=== PATIENT | female | born 1965 | race Caucasian/White ===

== ENCOUNTER 2016-08-06 18:25 | Emergency (ER) | payer BC ==
[~2016-08-06] VITALS: Ht 154.9 cm; Wt 114.6 kg
[~2016-08-06 18:25] MED LIST: NAPR250T43 PO; [UNRECOGNIZED DRUG - CODE] PO; atrovastin
[2016-08-06 18:45] VITALS: TEMP 37.2; Ht 154.9 cm; Wt 114.6 kg
[2016-08-06 19:59] VITALS: O2SAT 97
[2016-08-06 20:15] LABS: BASO % 0.4 %; BASO ABS # 0.04 K/uL (0-0.2); COMPLETE YES; EOS % 1.1 %; HEMATOCRIT 37.4 % (37-47); IG% 0.3 %; LYMPH % 34.7 %; LYMPH ABS # 3.36 K/uL (1.2-3.4); MEAN CELL VOLUME 90.8 fL (80-100); MEAN CORPUSCULAR HGB CONC 35.3 g/dl (32-36); MEAN PLATELET VOLUME 9.4 fL (7.4-10.4); MONO % 6.5 %; PLATELET COUNT 363 K/uL (130-400); RED BLOOD COUNT 4.12 M/uL (4.2-5.4); WHITE BLOOD COUNT 9.67 K/uL (4.8-10.8)
--- NOTE | 2016-08-06 20:28 | DIAGNOSTIC IMAGING REPORT ---
CHEST ONE VIEW PORTABLE HISTORY: Atypical CHEST PAIN COMPARISON: Chest 08/17/2009. FINDINGS: The cardiac silhouette remains borderline enlarged. No focal lung consolidations to suggest pneumonia. No evidence for pulmonary edema. No pleural effusions. No pneumothorax. IMPRESSION: No significant change compared to the prior study. No acute process. Electronically signed by: Cole Galloway M.D. 08/06/2016 8:26 PM Dictated Date/Time: 08/06/2016 8:25 PM
[2016-08-06 20:44] LABS: ALT/SGPT 58 U/L (12-78); AST/SGOT 41 U/L (15-37); BLOOD UREA NITROGEN 10 mg/dl (7-18); CALCIUM 8.2 mg/dl (8.5-10.1); CARBON DIOXIDE 30 mmol/L (21-32); CHLORIDE 103 mmol/L (98-107); CREATININE 0.83 mg/dl (0.60-1.20); GLUCOSE 88 mg/dl (70-99); POTASSIUM 3.3 mmol/L (3.5-5.1); SODIUM 140 mmol/L (136-145)
[2016-08-06 20:49] LABS: ALKALINE PHOSPHATASE 65 U/L (45-117)
[2016-08-06] MEDS ORDERED: ATOR10TA88 PO (20:56)
[2016-08-06] MEDS ORDERED: OPTIRAY 320 IV PRN (21:15)
--- NOTE | 2016-08-06 21:30 | DIAGNOSTIC IMAGING REPORT ---
CHEST CTA for PULMONARY ARTERIES CT DOSE: 711.75 mGy.cm HISTORY: Atypical chest pain. TECHNIQUE: Multiaxial CT images of the chest were performed following the intravenous administration of contrast to evaluate the pulmonary arteries. Maximal intensity projection images were also obtained. COMPARISON STUDY: Chest 08/06/2016. FINDINGS: There is a normal caliber thoracic aorta with no evidence for dissection. There is no evidence for pulmonary embolus. No pleural effusions. No pneumothorax. No mediastinal or hilar lymphadenopathy. The central airways are patent. A 3 mm nodule within the right lower lobe on image 80 of 281. Small linear densities at the right middle lobe and lingula favor subsegmental atelectasis. No focal lung consolidations to suggest pneumonia. Hepatic steatosis. A 12 mm hypodense lesion within the left hepatic lobe. This favors a cyst. The spleen and visualized adrenal glands are unremarkable. Colonic diverticulosis. Small hiatus hernia. No mediastinal or hilar lymphadenopathy. IMPRESSION: 1. No evidence for pulmonary embolus. 2. A 3 mm nodule within the right lower lobe. Please refer to the chart below for recommended follow-up. Please refer to below summary of Fleischner criteria recommendations for follow-up of incidental CT nodules (Radha Blankenship, Guidelines for management of small pulmonary nodules detected on CT scans: A statement from the Fleischner Society, Radiology 237: [id number].) Low Risk Patient: Minimal or no smoking or other known risk factors for malignancy <=4 mm: No follow-up needed. >4-6 mm: Initial follow-up CT at 12 months; if unchanged, no further follow-up. >6-8 mm: Initial follow-up CT at 6-12 months then at 18-24 months if no change. >8 mm: Follow-up CT at \R\3, 9, 24 months, or PET and/or biopsy. High Risk Patient: History of smoking or other known risk factors <=4 mm: Follow-up at 12 months; if unchanged, no further follow-up. >4-6 mm: Initial follow-up CT at 6-12 months then at 18-24 months if no change. >6-8 mm: Initial follow-up CT at 3-6 months then at 9-12 and 24 months if no change. >8 mm: Same as low risk patient. Note: Nodule size measured as average of length and width. Ground glass or partly solid nodules may require longer follow-up to exclude indolent adenocarcinoma. Electronically signed by: Cole Galloway M.D. 08/06/2016 9:29 PM Dictated Date/Time: 08/06/2016 9:20 PM
[2016-08-06 21:40] VITALS: BP 154/95; PULSE 83; O2SAT 98
--- NOTE | 2016-08-07 00:04 | EMERGENCY ROOM VISIT NOTE ---
History Report prepared by Nichole: Courtney Murillo Under the Supervision of: Dr. Gene Hobbs M.D. First contact with patient: 19:42 Chief Complaint: CHEST PAIN Stated Complaint: CHEST DISCOMFORT, CHEST PRESSURE Nursing Triage Summary: midsternal cp on and off for a couple of days, c/o nausea, seen at [facility], sent to the er History of Present Illness The patient is a 50 year old female who presents to the Emergency Room with complaints of intermittent central chest pain that began approximately one week ago. She currently rates her discomfort as a 4/10 in severity. The patient states that her pain has been constant since 1000 this morning, but states it was intermittent the past week. The chest pain is nonexertional. It does not happen postprandial. The patient additionally notes nausea intermittently for the past week. She states that she went to Urgent Care today because her pain has worsened. The patient denies any previous heart issues. She describes her pain as a weight resting on her chest. The patient states that the pain woke her from sleep last evening. She states that she has taken Ibuprofen for her discomfort without relief. The patient notes a family history of heart disease , stating that her father had a triple bypass. She denies any tobacco use. The patient notes a history of hypertension and hyperlipidemia. She states that her last stress test was 5-6 years ago. The patient states that she traveled by plane to [place] two weeks ago. She denies any increased pain with breathing. The patient notes relief of her pain with coughing. Pt denies LOC, headache, fevers, chills, diaphoresis, visual changes, neck pain, tearing pain radiating to the back, personal history or family history of aneurysm or pulmonary embolism, uncontrolled hypertension, breathing difficulties, leg swelling, coagulation abnormalities, recent surgery or immobilization, vomiting , abdominal pain, melena, hematochezia, urinary symptoms, numbness, weakness, lymphadenopathy, rash, or other complaints. Source of History: patient Onset: one week ago Position: chest (central) Symptom Intensity: 4/10 Quality: other (weight) Timing: intermittent Modifying Factors (Relieving): other (coughing) Associated Symptoms: + nausea Review of Systems See HPI for pertinent positives and negatives. A total of ten systems were reviewed and were otherwise negative. Past Medical & Surgical Medical Problems: (1) Hypercholesteremia (2) Hypertension Surgical Problems: (1) S/P section Family History Diabetes mellitus Heart disease Hypertension Social History Smoking Status: Never Smoker Smokeless Tobacco Use: No Alcohol Use: none Marital Status: Housing Status: lives with significant other Occupation Status: employed Current/Historical Medications Scheduled Atorvastatin (Lipitor), Unknown Dose PO DAILY Benazepril & Hydrochlorothiazi (Benazepril Hcl/Hydrochlor), 1 TAB PO DAILY Scheduled PRN Naproxen (Naprosyn), 250 MG PO BID PRN for Pain Allergies Coded Allergies: No Known Allergies (Unverified , 08/06/16) Physical Exam Vital Signs Date Time Temp Pulse Resp B/P Pulse Ox O2 Delivery O2 Flow Rate FiO2 08/06/16 21:40 83 22 154/95 98 Room Air 08/06/16 19:59 97 Room Air 08/06/16 19:59 96 Room Air 08/06/16 18:47 99 Room Air 08/06/16 18:45 37.2 86 18 151/88 99 Room Air Physical Exam GENERAL: Awake, alert, well-appearing, in no distress HENT: Normocephalic, atraumatic. Oropharynx unremarkable. EYES: Normal conjunctiva. Sclera non-icteric. NECK: Supple. No nuchal rigidity. FROM. No JVD. RESPIRATORY: Clear to auscultation. CARDIAC: Regular rate, normal rhythm. Extremities warm and well perfused. Pulses equal. ABDOMEN: Soft, non-distended. No tenderness to palpation. No rebound or guarding. No masses. RECTAL: Deferred. MUSCULOSKELETAL: Chest examination reveals no tenderness. The back is symmetrical on inspection without obvious abnormality. There is no CVA tenderness to palpation. No joint edema. LOWER EXTREMITIES: Calves are equal size bilaterally and non-tender. No edema. No discoloration. NEURO: Normal sensorium. No sensory or motor deficits noted. SKIN: No rash or jaundice noted. Medical Decision & Procedures ER Provider Diagnostic Interpretation: X ray results as stated below per my interpretation and radiologist interpretation. Other radiology results as stated below per my review and radiologist interpretation CHEST ONE VIEW PORTABLE HISTORY: Atypical CHEST PAIN COMPARISON: Chest 08/17/2009. FINDINGS: The cardiac silhouette remains borderline enlarged. No focal lung consolidations to suggest pneumonia. No evidence for pulmonary edema. No pleural effusions. No pneumothorax. IMPRESSION: No significant change compared to the prior study. No acute process. Electronically signed by: Cole Galloway M.D. 08/06/2016 8:26 PM Dictated Date/Time: 08/06/2016 8:25 PM CHEST CTA for PULMONARY ARTERIES CT DOSE: 711.75 mGy.cm HISTORY: Atypical chest pain. TECHNIQUE: Multiaxial CT images of the chest were performed following the intravenous administration of contrast to evaluate the pulmonary arteries. Maximal intensity projection images were also obtained. COMPARISON STUDY: Chest 08/06/2016. FINDINGS: There is a normal caliber thoracic aorta with no evidence for dissection. There is no evidence for pulmonary embolus. No pleural effusions. No pneumothorax. No mediastinal or hilar lymphadenopathy. The central airways are patent. A 3 mm nodule within the right lower lobe on image 80 of 281. Small linear densities at the right middle lobe and lingula favor subsegmental atelectasis. No focal lung consolidations to suggest pneumonia. Hepatic steatosis. A 12 mm hypodense lesion within the left hepatic lobe. This favors a cyst. The spleen and visualized adrenal glands are unremarkable. Colonic diverticulosis. Small hiatus hernia. No mediastinal or hilar lymphadenopathy. IMPRESSION: 1. No evidence for pulmonary embolus. 2. A 3 mm nodule within the right lower lobe. Please refer to the chart below for recommended follow-up. Please refer to below summary of Fleischner criteria recommendations for follow-up of incidental CT nodules (Radha Blankenship, Guidelines for management of small pulmonary nodules detected on CT scans: A statement from the Fleischner Society, Radiology 237: [phone].) Low Risk Patient: Minimal or no smoking or other known risk factors for malignancy <=4 mm: No follow-up needed. >4-6 mm: Initial follow-up CT at 12 months; if unchanged, no further follow-up. >6-8 mm: Initial follow-up CT at 6-12 months then at 18-24 months if no change. >8 mm: Follow-up CT at \R\3, 9, 24 months, or PET and/or biopsy. High Risk Patient: History of smoking or other known risk factors <=4 mm: Follow-up at 12 months; if unchanged, no further follow-up. >4-6 mm: Initial follow-up CT at 6-12 months then at 18-24 months if no change. >6-8 mm: Initial follow-up CT at 3-6 months then at 9-12 and 24 months if no change. >8 mm: Same as low risk patient. Note: Nodule size measured as average of length and width. Ground glass or partly solid nodules may require longer follow-up to exclude indolent adenocarcinoma. Electronically signed by: Cole Galloway M.D. 08/06/2016 9:29 PM Dictated Date/Time: 08/06/2016 9:20 PM Laboratory Results 08/06/16 20:08 Red Blood Count 4.12, Mean Corpuscular Volume 90.8, Mean Corpuscular Hemoglobin 32.0, Mean Corpuscular Hemoglobin Concent 35.3, Mean Platelet Volume 9.4, Neutrophils (%) (Auto) 57.0, Lymphocytes (%) (Auto) 34.7, Monocytes (%) (Auto) 6.5, Eosinophils (%) (Auto) 1.1, Basophils (%) (Auto) 0.4, Neutrophils # (Auto) 5.50, Lymphocytes # (Auto) 3.36, Monocytes # (Auto) 0.63, Eosinophils # (Auto) 0.11, Basophils # (Auto) 0.04 08/06/16 20:08 Test 08/06/16 20:08 08/06/16 20:12 White Blood Count 9.67 K/uL (4.8-10.8) Red Blood Count 4.12 M/uL (4.2-5.4) Hemoglobin 13.2 g/dL (12.0-16.0) Hematocrit 37.4 % (37-47) Mean Corpuscular Volume 90.8 fL (80-100) Mean Corpuscular Hemoglobin 32.0 pg (25-34) Mean Corpuscular Hemoglobin Concent 35.3 g/dl (32-36) Platelet Count 363 K/uL (130-400) Mean Platelet Volume 9.4 fL (7.4-10.4) Neutrophils (%) (Auto) 57.0 % Lymphocytes (%) (Auto) 34.7 % Monocytes (%) (Auto) 6.5 % Eosinophils (%) (Auto) 1.1 % Basophils (%) (Auto) 0.4 % Neutrophils # (Auto) 5.50 K/uL (1.4-6.5) Lymphocytes # (Auto) 3.36 K/uL (1.2-3.4) Monocytes # (Auto) 0.63 K/uL (0.11-0.59) Eosinophils # (Auto) 0.11 K/uL (0-0.5) Basophils # (Auto) 0.04 K/uL (0-0.2) RDW Standard Deviation 44.2 fL (36.4-46.3) RDW Coefficient of Variation 13.4 % (11.5-14.5) Immature Granulocyte % (Auto) 0.3 % Immature Granulocyte # (Auto) 0.03 K/uL (0.00-0.02) Anion Gap 7.0 mmol/L (3-11) Est Creatinine Clear Calc Drug Dose 95.4 ml/min Estimated GFR () 95.3 Estimated GFR (Non- 82.2 BUN/Creatinine Ratio 12.0 (10-20) Calcium Level 8.2 mg/dl (8.5-10.1) Total Bilirubin 0.4 mg/dl (0.2-1) Direct Bilirubin 0.1 mg/dl (0-0.2) Aspartate Amino Transf (AST/SGOT) 41 U/L (15-37) Alanine Aminotransferase (ALT/SGPT) 58 U/L (12-78) Alkaline Phosphatase 65 U/L (45-117) Total Creatine Kinase 106 U/L (26-192) Creatine Kinase MB < 0.5 ng/ml (0.5-3.6) Creatine Kinase MB Ratio (0-3.0) Troponin I < 0.015 ng/ml (0-0.045) Total Protein 7.7 gm/dl (6.4-8.2) Albumin 3.8 gm/dl (3.4-5.0) Lipase 109 U/L (73-393) Bedside D-Dimer > 450 ng/mlFEU (0-450) Laboratory results reviewed by me ECG Indication: chest pain Rate (beats per minute): 87 Rhythm: normal sinus Findings: no acute ischemic change, no ectopy ED Course 1945: The patient was evaluated in room B11B. A complete history and physical exam was performed. 2200: I reevaluated the patient and she is resting comfortably. I discussed the exam findings with her and I discussed the treatment plan. She is going to consult her PCP tomorrow for an outpatient stress test this week. She is ready to go home. Medical Decision Triage Nursing notes reviewed and agree them. The patient's history was concerning for chest pain. Differential diagnosis: Etiologies such as cardiac ischemia, aortic dissection, pulmonary embolism, pneumonia, pneumothorax, musculoskeletal, infections, pericarditis, myocarditis , esophageal rupture, gastrointestinal, as well as others were entertained. Physical examination: As above. ER treatment provided: No medication given as the patient's symptoms were mild and she declined analgesia On reassessment the patient felt better. Diagnostic interpretation by me: The electrocardiogram was negative for pathologic change. The labs revealed an unremarkable CBC and chemical panel. AST was minimal over normal. The patient had normal LFTs and lipase. Negative troponin. A single set of cardiac markers were performed because the patient's pain was present for greater than 8 hours. A d-dimer was performed and was positive. The patient was sent for CT imaging. Imaging studies: Chest x-ray and CT as above the patient was informed of the nodule as well as the fatty liver. I discussed treatment options with the patient. She does not wish to stay in the hospital. She would like to follow-up as an outpatient. She has a pending appointment with her primary this week. The patient will also notify the office tomorrow and talk to them about setting up an outpatient stress test. She has had nonexertional chest pain for over a week. The patient also has had pain all day today. She describes it as a pressure-like this could be costochondritis or even possible reflux as she noted she had some more when she was lying down. By the evaluation outlined above emergent etiologies such as cardiac ischemia, aortic dissection, pulmonary embolism, pneumonia, pneumothorax, infections, pericarditis, myocarditis, gastrointestinal, as well as others were deemed relatively unlikely. The patient was informed about the findings as listed above. All questions were answered and she was pleased with the treatment. Return instructions were outlined and the patient was discharged in stable condition. Referral: The patient was referred back to her primary care physician for follow-up in 2 to 3 days for a recheck of the current condition. The chart was completed utilizing [employer] voice recognition software. Grammatical errors, random word insertions, pronoun errors, and incomplete sentences are an occasional consequence of this system due to software limitations, ambient noise, and hardware issues. Any formal questions or concerns about the content, text, or information contained within the body of this dictation should be directly addressed to the physician for clarification. Impression Primary Impression: Substernal chest pain Scribe Attestation The scribe's documentation has been prepared under my direction and personally reviewed by me in its entirety. I confirm that the note above accurately reflects all work, treatment, procedures, and medical decision making performed by me. Departure Information Dispostion Home / Self-Care Referrals Bri Max,DO Forms HOME CARE DOCUMENTATION FORM, IMPORTANT VISIT INFORMATION Patient Instructions My [facility] [address] Additional Instructions CHEST PAIN INSTRUCTIONS: Baby aspirin daily until directed otherwise by your primary physician. Ibuprofen(Motrin, Advil) may be used for fever or pain. Use 600mg every six hours as needed. Take with food. Avoid using more than 2400mg in a 24 hour period. Do not use 2400mg per day for more than three consecutive days without physician direction. Prolonged inappropriate use can lead to stomach upset or ulcers. (AND/OR) Acetaminophen(Tylenol) may be used for fever or pain. Use 1000mg every six hours as needed. Avoid using more than 4000mg in a 24 hour period. Rest and drink plenty of fluids as tolerated. Continue current medications. Avoid strenuous activities and anything that worsens your pain. Resume normal activities once your symptoms resolve. Return to the ER immediately for worsening or persistent chest pain, abdominal pain, vomiting, fevers, chest pains, difficulty breathing, worsening of your condition, or as needed. Follow up with your primary physician as scheduled for a recheck of your current condition. Call the office tomorrow to set up a stress test for this week.
== END 2016-08-06 22:18 | disposition home or self-care (01) ==
LOC: C.EDB 18:26
DX: R07.2 Precordial pain (principal); I10 Essential (primary) hypertension; E78.00 Pure hypercholesterolemia, unspecified